=== PATIENT | male | born 1965 ===

== ENCOUNTER 2021-06-02 13:26 | Emergency (ER) | payer MEDICAID ==
[~2021-06-02] VITALS: Ht 182.9 cm; Wt 95.3 kg
== END 2021-06-02 18:10 | disposition left against medical advice (07) ==
LOC: ER 13:26
DX: M25.562 Pain in left knee (principal); Z53.21 Procedure and treatment not carried out due to patient leaving prior to being seen by health care provider; W01.0XXA Fall on same level from slipping, tripping and stumbling without subsequent striking against object, initial encounter; Y93.89 Activity, other specified; Y92.89 Other specified places as the place of occurrence of the external cause; Y99.8 Other external cause status
CPT/HCPCS: 73562